=== PATIENT | female | born 1995 | race Two or more races ===

== ENCOUNTER 2016-07-30 18:23 | Emergency (ER) | payer MEDICAID ==
[~2016-07-30] VITALS: Ht 165.1 cm; Wt 131.5 kg
[2016-07-30 20:57] VITALS: BP 154/88
== END 2016-07-30 20:57 | disposition home or self-care (01) ==
LOC: ED 18:23
DX: R10.11 Right upper quadrant pain (principal); E66.9 Obesity, unspecified